=== PATIENT | female | born 1940 | race Caucasian/White ===

== ENCOUNTER 2017-12-13 11:25 | Outpatient (CLI) | payer MEDICARE ==
[2017-12-13 18:54] LABS: BILIRUBIN,URINE NEGATIVE (NEGATIVE); GLUCOSE, URINE (UA) NEGATIVE (NEGATIVE); KETONES,URINE (UA) NEGATIVE (NEGATIVE); LEUKOCYTE ESTERASE, URINE SMALL (NEGATIVE); NITRITE,URINE NEGATIVE (NEGATIVE); OCCULT BLOOD,URINE NEGATIVE (NEGATIVE); PROTEIN,URINE NEGATIVE (NEGATIVE); UROBILINOGEN,URINE 0.2 (NORMAL) E.U./dL (NORMAL)
[2017-12-13 19:22] LABS: BACTERIA,URINE Few /HPF (None Seen); CLARITY,URINE CLEAR (CLEAR); RBC,URINE None Seen /HPF (0-5); SQUAMOUS EPITHELIAL CELL,UR MANY Squamous (<= Few)
== END 2017-12-13 11:26 | disposition home or self-care (01) ==
LOC: LAB.WCP 11:25
PROVIDERS: ATTEND Family Medicine
DX: N76.0 Acute vaginitis (principal); R30.0 Dysuria
CPT/HCPCS: 81001; 87086

== ENCOUNTER 2017-12-29 09:41 | Outpatient (CLI) | payer MEDICARE, OTHER ==
--- NOTE | 2017-12-29 13:00 | Mammography Report ---
Reason: BREAST PAIN,LEFT Procedure Date: 12/29/2017 Accession Number: [id number] / [id number] Procedure: JEANNINE - Diagnostic Dig Bilat CPT Code: FULL RESULT: EXAM: Diagnostic Dig Bilat DATE: 12/29/2017 10:51 AM CLINICAL HISTORY: Nonfocal Breast pain TECHNIQUE: Bilateral CC and MLO breast views COMPARISON: Mammogram 01/22/2015 FINDINGS: The breast parenchyma is extremely dense which may limit the sensitivity of mammography. There are benign-appearing calcifications and lymph nodes. No dominant mass, architectural distortion, or concerning cluster of microcalcifications is seen. IMPRESSION: Benign findings RECOMMENDATION: Annual screening mammogram unless otherwise clinically indicated. BIRADS CATEGORY 2: Benign findings STANDARD QUALIFYING STATEMENTS: 1. This examination was reviewed with the aid of Computer-Aided Detection (CAD). 2. A negative or benign imaging report should not delay biopsy if clinically suspicious findings are present. Consider surgical consultation if warrented. More than 5% of cancers are not identified by imaging. 3. Dense breasts may obscure an underlying neoplasm.
== END 2017-12-29 09:42 | disposition home or self-care (01) ==
LOC: DI 09:41
PROVIDERS: ATTEND Family Medicine
DX: N64.4 Mastodynia (principal)
CPT/HCPCS: 77066

== ENCOUNTER 2018-11-12 08:00 | Outpatient (CLI) | payer MEDICARE, OTHER ==
[2018-11-12 22:47] LABS: CANDIDA GROUP DNA NEGATIVE (NEGATIVE); CANDIDA KRUSEI DNA NEGATIVE (NEGATIVE); TRICHOMONAS VAGINALIS DNA NEGATIVE (NEGATIVE)
== END 2018-11-12 23:59 ==
LOC: LAB.R 08:00
PROVIDERS: ATTEND Family Medicine
DX: N76.0 Acute vaginitis (principal)
CPT/HCPCS: 87661; 87801

== ENCOUNTER 2018-11-16 08:00 | Outpatient (CLI) | payer MEDICARE, OTHER ==
[2018-11-16 21:20] LABS: CANDIDA GROUP DNA NEGATIVE (NEGATIVE); CANDIDA KRUSEI DNA NEGATIVE (NEGATIVE); TRICHOMONAS VAGINALIS DNA NEGATIVE (NEGATIVE)
== END 2018-11-16 23:59 | disposition home or self-care (01) ==
LOC: LAB.R 08:00
PROVIDERS: ATTEND Obstetrics & Gynecology
DX: N89.8 Other specified noninflammatory disorders of vagina (principal)
CPT/HCPCS: 87661; 87801

== ENCOUNTER 2019-01-25 04:45 | Outpatient (CLI) | payer MEDICARE, OTHER ==
[2019-01-25 21:18] LABS: CANDIDA GROUP DNA NEGATIVE (NEGATIVE); CANDIDA KRUSEI DNA NEGATIVE (NEGATIVE); TRICHOMONAS VAGINALIS DNA NEGATIVE (NEGATIVE)
== END 2019-01-25 23:59 | disposition home or self-care (01) ==
LOC: LAB.R 04:45
PROVIDERS: ATTEND Physician Assistant
DX: N89.8 Other specified noninflammatory disorders of vagina (principal)
CPT/HCPCS: 87661; 87801

== ENCOUNTER 2019-10-25 11:00 | Outpatient (CLI) | payer MEDICARE, OTHER ==
--- NOTE | 2019-10-25 15:56 | CONSULTATION NOTE ---
Palliative Care Consultation - Referral Referring Provider: Dr. 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 She just underwent a bland embolization of her inferior right hepatic lobe/medial segment left hepatic lobe mass. She has had a previous embolization of her posterior segment of her right lobe liver mass. Patient has had her disease for over 5 years, she initially presented with carcinoid syndrome, a progressive chronic diarrhea and flushing episodes, in [place]. A CT scan demonstrated numerous hepatic masses as well as an ill-defined ileal mass. She did undergo biopsy of the liver mass on 04/29/2015 and was positive for metastatic well-differentiated neuroendocrine carcinoma, favoring intestinal origin. She has been on monthly lanreotide 120 mg subcutaneous injections since then, with fairly good control of her disease. She has though under the last couple months, has lost weight, worsening discomfort, and presented back on [facility] as she was planning to relocate permanently to [place]. They have been splitting their time up to this point in time as "snowbirds". Her was recently diagnosed with Parkinsons, as well as her worsening disease, as well as her daughter who is battling ovarian cancer has made this move more urgent. She though is feeling quite overwhelmed, and does not feel that this is possible to stay on task given particular her uncontrolled pain and unknown outcome. Patient's understanding is that if she were not to do further treatment, she has 7 months or less, she was offered by her oncologist Wesley, which is an infusion given every 2 months, For a series of 4 infusions, this is a radiopharmaceutical treatment. She would need to have this done down in [place] at [facility], or when she returns back to [place]. Patient presents with severe pain in her abdomen, she has tried hydrocodone 5 mg/acetaminophen 325 mg, intermittently, she took 1 full tablet, and felt somewhat confused, so has been taking a half. But she is only been taking it intermittently and without full coverage of her high intensity and persistent pain. She is has alternating diarrhea and constipation, anorexia, weight loss, and weakness. She at baseline has high anxiety, and is feeling quite overwhelmed both the grief and loss of her impending move, her daughter's illness, and her 's recent diagnosis. Her pain was exacerbated with her most recent embolization, she was hospitalized overnight for pain control, at that point time they had treated with Dilaudid and fentanyl. She is opioid nilson, may end up transitioning to fentanyl eventually, but need to get a better understanding and control of her pain with a short acting.Patient also presents with severe candidiasis, which is causing significant discomfort and impacting not only her voice and swallowing, but oral intake as well. Palliative care was contacted by patient's PCP Dr. Kwon, for urgent referral regarding pain and symptom management. Medical/Surgical History - Past Medical History Cardiovascular: reports: None Respiratory: reports: None Neuro: None Endocrine/Autoimmune: reports: None GI: reports: Other (diverticulosis) BRIM PLATER: reports: Other (vaginal dryness on premarin) HEENT: reports: Chronic vision loss, Other (allergic rhinitis) Psych: reports: Depression, Anxiety Musculoskeletal: reports: Osteoarthritis, Osteoporosis, Fatigue, Scoliosis, Other (kyphosis) Derm: reports: Rosacea MRSA Hx?: No - Past Surgical History General: reports: Other (bland embolization of liver 2019;2019) Ortho: reports: Hip replacement (right) - Substance History Use: Uses substance without health or social issues: NONE Social History - Living Situation Living arrangement: At home Living Situation: With spouse/s.o. Support System: Patient and alternate between [place] and [facility]. They had actually come up here to close down and sell their house, and permanently move south. Both her daughter, unfortunately has been battling ovarian cancer for 14 years is doing poorly, as well as her son are closer to their [place] home. Her is most recently been diagnosed with Parkinson's, so there is a concern about his health as well. They have very little social support and community up here. Family History - Family History Family History: Mother: (90 polycythemia), Alzheimer's Disease (age 94), Father: , Brother: Alive and Well (wagners syndrome) Family History Comment/Other: both children are adopted, but daughter has ovarian CA Medications/Allergies - Medications Home Medications: Ambulatory Orders Medication Instructions Recorded Confirmed Cyclosporine [Restasis] 1 drops EACHEYE BID 10/25/19 10/25/19 Estrogens, Conjugated [Premarin] 0.45 mg PO DAILY 10/25/19 10/25/19 Fluconazole [Diflucan] 100 mg PO .1X 10/25/19 10/25/19 Loperamide [Imodium] 2 mg PO QID PRN 10/25/19 10/25/19 Nystatin 5 ml PO QID MDD 10 days 10/25/19 10/25/19 Ondansetron [Ondansetron Odt] 4 mg PO Q6HR PRN 10/25/19 10/25/19 Senna [Senokot] 1 - 2 tab PO BID PRN 10/25/19 10/25/19 oxyCODONE [Roxicodone] 2.5 - 5 mg PO Q4HR 10/25/19 10/25/19 polyethylene glycoL 3350 [Miralax] 8.5 mg PO DAILY MDD bid 10/25/19 10/25/19 - Allergies Allergies/Adverse Reactions: Allergies Allergy/AdvReac Type Severity Reaction Status Date / Time erythromycin base Allergy Severe Unknown Verified 10/25/19 15:56 penicillin V Allergy Severe Unknown Verified 10/25/19 15:56 pneumococcal vaccine Allergy Severe Unknown Verified 10/25/19 15:56 [From Pneumovax-23] morphi AdvReac Unknown Unknown Uncoded 10/25/19 15:57 Review of Systems - Constitutional Constitutional: reports: Fatigue, Weakness, Poor appetite, Weight loss (normal weight thin at baseline 125-128; currently 116) - Eyes Eyes: reports: Vision loss (worsening) - Ears, Nose & Throat Ears, Nose & Throat: reports: Postnasal drainage, Hoarseness (voice weakening;complains of feeling something is down throat (suspect candidiasis)), Mouth lesions (candidiasis) - Cardiovascular Cardiovascular: reports: Lightheadedness, Exertional dyspnea, Decr. exercise tolerance - Respiratory Respiratory: denies: SOB at rest - Gastrointestinal Gastrointestinal: reports: Abdominal pain, Constipation, Diarrhea (alternating with constipation; mo), Poor appetite, Early satiety - Genitourinary Genitourinary: reports: Urgency, Incontinence - Musculoskeletal Musculoskeletal: reports: Back pain, Stiffness, Muscle weakness - Integumentary Integumentary: reports: Dryness - Neurological Neurological: reports: General weakness - Psychiatric Psychiatric: reports: Depression, Anxiety - All Other Systems All Other Systems: reports: Reviewed and negative Physical Exam - Vital Signs Temperature: 96.7 C Pulse Rate: 72 Respiratory Rate: 18 O2 Saturation: 99 (ra @ rest) Blood Pressure: 102/54 - Physical Exam General Appearance: positive: Alert, Moderate distress, Anxious Eyes Bilateral: positive: Normal inspection ENT: positive: Hoarseness (S), Mouth lesions (tongue / buccal area with yeast; was treated at [facility]; was on troches switched to nystatin Swish and swallow yesterday) Neck: positive: Trachea midline, Other (kyphosis with poor posture; ROM limited;) Cardiovascular: positive: Regular rate & rhythm Respiratory: positive: No respiratory distress, Diminished in bases. negative: Wheezes, Rales, Rhonchi Abdomen: positive: Soft, Tenderness Skin: positive: Pallor, Dryness Extremities: positive: No pedal edema Neurologic/Psychiatric: positive: Oriented x3, Weakness, Depressed mood/affect (tearful) Palliative Care - POLST Patient has POLST: No Pain: Pain worsening, Location (abdominal pain diffuse; worsening; has only tried hydrocodone 5 mg/325 mg APAP intermittently as is fearful; but not getting relief;) Tiredness/Fatigue: Severe (7-10) Drowsiness/Sedation: Mild (1-3) Nausea: None Anorexia: Severe (7-10), Weight loss Dyspnea: None Depression: Moderate (4-6) Anxiety: Severe (7-10), Comment (reports anxiety chcf;) Feelings of wellbeing/Perceived Quality of Life: Poor, Worsening Sleep: Sleeps poorly, Variable sleep pattern (up for urinating; pain awakens currently) Constipation: Yes, Opoid induced, Unmanaged Performance Status: Patient reports fatigue, decreasing activity tolerance. She is able to manage her ADLs, and is ambulatory. - Palliative Care Discussion: Patient is feeling overwhelmed and anxious with her pain crisis, she reports she has anxiety at baseline anyway. She is very much interested in meeting with the medical palliative care social insurance administrator and the hand reamer. She feels distressed as they had "plans" and making this transition as far as wrapping of their household here, getting her treatment, and moving back to [place]. She reports she is not afraid of dying, but does not want to suffer, and feels like her suffering quotient is off the map. She is worried given her 's health status, impacting his current schedule and trying to support his wellness. She does meet with the oncologist this next week, will hopefully know what her next plan or options is. She feels currently though if her pain does not come under control, she will not be able to make this appointment, reassured we will aggressively work on this together. 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 It is unclear if this is exacerbated by her recent embolization, but has been persistently worsening. She does not present with symptoms of obstruction, but is with severe anxiety and distress. Palliative care to provide support for pain and symptom management and anticipatory guidance. Recommendations/Counseling Done: 1. Pain of neoplastic origin. Patient with escalating pain, does not present with any acute signs or symptoms of infection, nor obstruction. Attributed to disease at this point in time, patient is opioid nilson. Patient to start with oxycodone 5 mg tabs, initiate half to 1 tab [id number] every 4 hours, this is written out with clear instructions and reviewed with patient and . Goal would be at point she is established on to find opioid dose to treat her pain, to transition her over to fentanyl. 2. Oral candidiasis. Suspect this is esophageal as well given her hoarseness and worsening swallow. We will go ahead and prescribe Diflucan 100 mg x 1, and she will as she is just switched continue with the nystatin 5 mils swish and swallow, continue to monitor. 3. Constipation. Suspect this is opioid induced. Patient is to start MiraLAX one half capful daily, and obtained senna 8.6 mg, to take intermittently if no BM in 48 hours. Patient does alternate with diarrhea and constipation secondary to her carcinoid syndrome. 4. Anorexia. This is multifactorial, patient encouraged on small frequent feedings, as well as to initiate protein supplements. She did try when the other day, tolerated without difficulty. Instructed to take 1 or 2 daily on a regular basis. Patient does describe anorexia. Patient cannot be on an SSRI, but may be a candidate for dexamethasone, will wait till candidiasis cleared, she did tolerated after her embolization. 5. Advanced care planning. Patient is quite overwhelmed, plans to return to [place]. Has very little community or support here, will initiate referral to medical palliative care social insurance administrator and hand reamer. Will revisit advanced care planning documents at next visit. Time Spent: 90 minutes with greater than 50% of this done in counseling regarding pain and symptom management, coordination of care with primary care and palliative care team.
== END 2019-10-25 11:01 | disposition home or self-care (01) ==
LOC: PC 11:00
PROVIDERS: ATTEND Nurse Practitioner Adult Health
DX: Z51.5 Encounter for palliative care (principal); G89.3 Neoplasm related pain (acute) (chronic); C78.7 Secondary malignant neoplasm of liver and intrahepatic bile duct; C80.1 Malignant (primary) neoplasm, unspecified; B37.0 Candidal stomatitis; F41.9 Anxiety disorder, unspecified; K52.9 Noninfective gastroenteritis and colitis, unspecified; K59.00 Constipation, unspecified; R63.0 Anorexia; H54.7 Unspecified visual loss; Z79.899 Other long term (current) drug therapy; Z79.891 Long term (current) use of opiate analgesic
CPT/HCPCS: 99345

== ENCOUNTER 2019-10-28 19:19 | Outpatient (CLI) | payer MEDICARE, OTHER ==
--- NOTE | 2019-10-28 20:25 | CONSULTATION NOTE ---
Palliative Care Follow Up - Referral Referring Provider: Dr. 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 She has had progressive and worsening pain over the last week, was asked to be seen by her PCP Dr. Taylor given her distress. She has had her disease for over 5 years, and has been managed with regular octreotide injections, lasting about 3 weeks, but receiving every 28 days. She does have a progressive chronic diarrhea, and flushing, which are moderately controlled by her current regimen. She has previously undergone an embolization, but not with the significant side effects she has now. I did start her on [id number] oxycodone one half to full tab 5 mg, for total of around 20 to 25 mg in 24 hours. This has been much more helpful, and she is not so distress. She has to wake up, though to take her pain meds, and would benefit from long-acting, she currently meets equal energy [facility] fentanyl 12 mcg patch, will proceed with this today. The other distressing symptom and it appears she is developed ascites, her abdomen is taut, she does have pressure under her ribs, it is firm to touch. She is also developed lower extremity edema, unfortunately she presents with blood pressure of 92/58, and a pulse of 60. She has gained about 4 to 5 pounds of fluid, she still remains quite cachectic. She continues to be challenged with getting calories, though is doing better, and is managing to get around 5 to 6 glasses of fluids a day. She reports her urine is lightening up. She still has significant fatigue, and is feeling pushed as far as her quality of life is worsening. Patient's voice remains quite weak and soft, her oral candidiasis is much improved. Her past medical history includes diverticulosis, chronic vision loss, allergic rhinitis, osteoarthritis, osteoporosis, scoliosis, kyphosis, and rosacea. Social History - Living Situation Living arrangement: At home Living Situation: With spouse/s.o. Support System: She lives with her him, [place] had [place] come up here to close and sell their house, and permanently move south. She does not see this is possible at this current time, given her physical condition. Her daughter is doing poorly, she has ovarian cancer and she is quite worried about her. She is hoping to move c loser to her [place] home, as her son would be closer as well. Her is most recently been diagnosed with Parkinson's so his health concerns remain problematic, she did share in confidence she is also worried some about his unwillingness to accept help, it is challenging with is hard of hearing, and she is concerned about memory. They have a single level home, do have resources to hire assistance if needed, but do not have any community support. Medications/Allergies - Medications Home Medications: Ambulatory Orders Medication Instructions Recorded Confirmed Cyclosporine [Restasis] 1 drops EACHEYE BID 10/25/19 10/28/19 Estrogens, Conjugated [Premarin] 0.45 mg PO DAILY 10/25/19 10/28/19 Loperamide [Imodium] 2 mg PO QID PRN 10/25/19 10/28/19 Nystatin 5 ml PO QID MDD 10 days 10/25/19 10/28/19 Ondansetron [Ondansetron Odt] 4 mg PO Q6HR PRN 10/25/19 10/28/19 Senna [Senokot] 1 - 2 tab PO BID PRN 10/25/19 10/28/19 oxyCODONE [Roxicodone] 2.5 - 5 mg PO Q4HR 10/25/19 10/28/19 polyethylene glycoL 3350 [Miralax] 8.5 mg PO DAILY PRN MDD bid 10/25/19 10/28/19 fentaNYL [Fentanyl 12mcg patch] 12 mcg TOP .72 HOURS 10/28/19 10/28/19 - Allergies Allergies/Adverse Reactions: Allergies Allergy/AdvReac Type Severity Reaction Status Date / Time erythromycin base Allergy Severe Unknown Verified 10/25/19 15:56 penicillin V Allergy Severe Unknown Verified 10/25/19 15:56 pneumococcal vaccine Allergy Severe Unknown Verified 10/25/19 15:56 [From Pneumovax-23] morphi AdvReac Unknown Unknown Uncoded 10/25/19 15:57 Review of Systems - Constitutional Constitutional: reports: Fatigue, Weakness, Poor appetite, Weight gain (fluid/remains cachetic 120 pounds on her scale). denies: Fever, Chills - Eyes Eyes: reports: Blurred vision, Vision loss - Ears, Nose & Throat Ears, Nose & Throat: reports: Hoarseness, Dry mouth. denies: Mouth lesions (improved) - Cardiovascular Cardiovascular: reports: Lightheadedness, Decr. exercise tolerance - Respiratory Respiratory: denies: Cough, SOB at rest - Gastrointestinal Gastrointestinal: reports: Abdominal pain, Abdominal distention (worsening), Constipation (small bm today), Bloating, Poor appetite, Early satiety. denies: Rectal bleeding, Nausea, Reflux/heartburn - Genitourinary Genitourinary: reports: Incontinence - Musculoskeletal Musculoskeletal: reports: Back pain, Muscle aches, Stiffness, Muscle weakness - Integumentary Integumentary: reports: Dryness - Neurological Neurological: reports: General weakness - Psychiatric Psychiatric: reports: Depression, Anxiety - All Other Systems All Other Systems: reports: Reviewed and negative Physical Exam - Vital Signs Temperature: 96.4 C Pulse Rate: 60 Respiratory Rate: 18 O2 Saturation: 95 (ra @ rest) Blood Pressure: 92/58 - Physical Exam General Appearance: positive: Alert, Moderate distress, Anxious Eyes Bilateral: positive: Normal inspection ENT: positive: Hoarseness, Dry mouth. negative: Mouth lesions Neck: positive: Trachea midline, Other (kyphosis with poor posture; ROM limited;) Cardiovascular: positive: Regular rate & rhythm Respiratory: positive: No respiratory distress, Diminished in bases. negative: Wheezes, Rales, Rhonchi Abdomen: positive: Soft, Tenderness, Distended, Taut Skin: positive: Pallor, Dryness Extremities: positive: Pedal edema (2+ pedal edema up to mid calf) Neurologic/Psychiatric: positive: Oriented x3, Weakness, Depressed mood/affect (tearful) Palliative Care - POLST Patient has POLST: Yes POLST Status: DNR, Selective Treatment Pain: Pain improved, Location (RUQ) Tiredness/Fatigue: Severe (7-10) Drowsiness/Sedation: None Nausea: None Anorexia: Severe (7-10), Weight loss Dyspnea: Moderate (4-6) (with exertion; feeling worse with abdominal pressure) Depression: Moderate (4-6) Anxiety: Severe (7-10) Feelings of wellbeing/Perceived Quality of Life: Poor, Worsening Sleep: Sleep improved, Variable sleep pattern (up at night to void) Constipation: Yes, Opoid induced, Managed Performance Status: Patient is ambulatory, still able to bathe. Less able to participate in household tasks, finding everything much more difficult. She does perceive herself is having declining functional status, I would put her at a PPS of 50% - Palliative Care Discussion: Patient is quite pleased her pain is better controlled, she feels that this is improved her outlook. She does though still perceive herself is deteriorating, she is not afraid of dying, but would like to know what her options are as far as if this is going to make sense to move forward. She is quite anxious for appointment with Oncology on . Significant concern though with her development of ascites and lower extremity edema, is her most often progressive signs of her liver mets. She is quite pragmatic, and would like information to be able to weigh benefits and burdens of moving forward, counseling provided regarding the continuum of care including hospice. Patient at this point in time until she has that information, is still congruent we reviewed her POLST that was completed on 10/17/2019 during her hospitalization. She is a do not attempt resuscitation and selective treatment. She does not want though to have prolong suffering, and is very worried about having appropriate support in the home. Medical palliative care social worker aide to make contact with patient, and family for anticipatory planning. Patient has given permission for the palliative care team to speak with her daughter and/or son. She is quite worried about her daughter as she is quite ill with her own ovarian cancer journey. 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 It is unclear if her recent pain crisis was exacerbated by her recent embolization, she did report she was having increasing pain but it acutely worsened after the procedure. She does not present currently with symptoms of obstruction, but does present today with worsening symptoms of ascites, and lower extremity edema. Palliative care to provide support for pain and symptom management and anticipatory guidance. Recommendations/Counseling Done: 1.Pain of neoplastic origin. Patient was able to figure out how to do through the night dosing, she has been taking oxycodone one half every 4 hours with 1 at nighttime, for a total of 20 to 25 mg in 24 hours. This does meet equal analgesic for fentanyl 12 mcg patch, I have ordered this. Instructions written out, reviewed, asked her to call into palliative care nurse when starts, so can do follow-up. Patient will then transition to further oxycodone for breakthrough dosing only. She is quite thankful to have relief at this point in time. 2. Oral candidiasis. She still has mild white coating her tongue, but no further vehicle lesions, and soreness and pain has resolved. She will continue to finish up her nystatin, but is making progress. 3. Constipation. She is about due for her octreotide, she has had some intermittent diarrhea, though presents today with constipation. We did discuss again titrating the MiraLAX as needed, if no good BM in 48 hours she is to start the senna. She does verbalize understanding. 4. Anorexia. This is multifactorial, patient continues to be challenged now particularly with her ascites to get adequate calories and fluid intake. Patient may be a candidate in the future for dexamethasone, after she is finished her nystatin. 5. Ascites. She does present with several white count, abdomen quite distended and taut, this is significantly increased since our last visit a few days ago. Did reach out to her oncologist, spoke with Urvashi SOLORZANO regarding report. She did get back to me he will evaluate on , in agreement given her hypotension, not to start diuretics at this point in time. Patient has been encouraged to keep feet elevated, and wear support hose if she has some. 6. Advanced care planning. Patient does have a POLST in place with DNA R and selective treatment. Iftikhar, her says they do have a DPOAE document, he will try and locate it but has their son as a second inline. They are struggling with her current situation, and how best to plan for the future. Did present to oncology patient's questions, regarding weigh benefits and burdens of proceeding with treatment, we discussed the continuum of care regarding hospice, and will be seen by medical palliative care social worker aide and ballast cleaning operator. Time Spent: 45 minutes with greater than 50% of this time in counseling regarding pain and symptom management, and coordination of care with primary, oncology, and palliative care team
== END 2019-10-28 19:20 | disposition home or self-care (01) ==
LOC: PC 19:19
PROVIDERS: ATTEND Nurse Practitioner Adult Health
DX: Z51.5 Encounter for palliative care (principal); G89.3 Neoplasm related pain (acute) (chronic); E34.0 Carcinoid syndrome; C7A.00 Malignant carcinoid tumor of unspecified site; C7B.02 Secondary carcinoid tumors of liver; R18.8 Other ascites; B37.0 Candidal stomatitis; R63.0 Anorexia; K52.9 Noninfective gastroenteritis and colitis, unspecified; K59.00 Constipation, unspecified; R53.83 Other fatigue; H54.7 Unspecified visual loss; Z79.891 Long term (current) use of opiate analgesic; Z79.899 Other long term (current) drug therapy; Z66 Do not resuscitate
CPT/HCPCS: 99349

== ENCOUNTER 2019-12-03 14:00 | Outpatient (CLI) | payer MEDICARE, OTHER ==
--- NOTE | 2019-12-03 17:12 | CONSULTATION NOTE ---
Palliative Care Follow Up - Referral Referring Provider: Dr. Jennifer Kwon Time of Visit: [id number] Referral setting: Home Referral Reason: Met Malignant carcinoid to the liver/Wt. 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 She does have known persistent masses in her liver, up to 6.3 cm at the base, she does have ongoing pressure and discomfort in this area. Her imaging on 11/12 does show persistent gallbladder distention with gallbladder wall thickening and potentially indicating chronic cholecystitis, most likely biliary stasis. She had told the oncologist her pain was resolved, but this was as a result of fentanyl patch. She would though like to continue continue and consider titrating off, we have written out schedule for today. Her pain is most acute in the right upper quadrant, notices it most at bedtime, particularly with turning and twisting. It also provides a lot of abdominal pressure and distention, causing early satiety and poor intake and progressive weight loss. Patient did have biopsy, that showed progressive metastatic well differentiated GI neck to the liver,, grade 2 with high 65 5 to 10%. She was given the recommendation to follow-up at [facility], for GA67 Dotatate PET/CT. She is quite anxious that she has not heard from them, and she is starting to have escalating symptoms of flushing, severe diarrhea, and worsening fatigue. She is having this test is her understanding and to further evaluate whether she be a candidate for [place] RT with Lutathera. He also presented some chemotherapeutic options, which she has high anxiety regarding this. Her daughter is currently undergoing chemotherapy, and having significant side effects and declined. She is quite frustrated with oncology as feels like she is not getting prognosis, though does admit most likely is too soon to tell without all the information needed together. Her most persistent symptoms today are she is having persistent diarrhea, she has not been taking Imodium or Lomotil, and has had more weight loss. She is unable to tell me why she has not medicated for side effects, but we did go over strategy today. She remains quite anxious, multiple stressors, has been working with medical palliative care public health social worker for short-term and long-term planning as well as counseling for adjustment illness. Social History - Living Situation Living arrangement: At home Living Situation: With spouse/s.o. Support System: Patient's usual pattern is alternating between [facility] and [place], she at this point in time feels too overwhelmed to move forward on transitioning back down though they do have a more social support. They are quite isolated, her has Parkinson's with some memory issues, which increases communication and stress issues between the 2 of them. Medications/Allergies - Medications Home Medications: Ambulatory Orders Medication Instructions Recorded Confirmed Cyclosporine [Restasis] 1 drops EACHEYE BID 10/25/19 12/05/19 Estrogens, Conjugated [Premarin] 0.45 mg PO DAILY 10/25/19 12/05/19 Loperamide [Imodium] 2 mg PO QID PRN 10/25/19 12/05/19 Ondansetron [Ondansetron Odt] 4 mg PO Q6HR PRN 10/25/19 12/05/19 Senna [Senokot] 1 - 2 tab PO BID PRN 10/25/19 12/05/19 oxyCODONE [Roxicodone] 2.5 - 5 mg PO Q4HR 10/25/19 12/05/19 polyethylene glycoL 3350 [Miralax] 8.5 mg PO DAILY PRN MDD bid 10/25/19 12/05/19 Diphenoxylate/Atropine [Lomotil] 1 tab PO Q4HR PRN MDD 8 tabs 12/05/19 12/05/19 - Allergies Allergies/Adverse Reactions: Allergies Allergy/AdvReac Type Severity Reaction Status Date / Time erythromycin base Allergy Severe Unknown Verified 10/25/19 15:56 penicillin V Allergy Severe Unknown Verified 10/25/19 15:56 pneumococcal vaccine Allergy Severe Unknown Verified 10/25/19 15:56 [From Pneumovax-23] morphi AdvReac Unknown Unknown Uncoded 10/25/19 15:57 Review of Systems - Constitutional Constitutional: reports: Fatigue (worsening), Weakness, Poor appetite, Weight loss (118). denies: Fever, Chills - Ears, Nose & Throat Ears, Nose & Throat: reports: Hoarseness (voice changing/weak), Dry mouth - Cardiovascular Cardiovascular: reports: Edema (improved), Lightheadedness, Exertional dyspnea, Decr. exercise tolerance - Respiratory Respiratory: reports: SOB with exertion. denies: SOB at rest - Gastrointestinal Gastrointestinal: reports: Diarrhea (worsening off landreotide; up to 5-6 x times yesterday; had NOT taken any antidiarrheal), Poor appetite, Early satiety. denies: Nausea - Genitourinary Genitourinary: reports: Frequency - Musculoskeletal Musculoskeletal: reports: Back pain, Stiffness, Muscle weakness - Integumentary Integumentary: reports: Dryness - Neurological Neurological: reports: General weakness - Psychiatric Psychiatric: reports: Depression, Anxiety (has not heard about scheduled [facility] appt; not getting "shot"; daughter's health is declining) - Hematologic/Lymphatic Hematologic/Lymphatic: denies: Recurrent infections - All Other Systems All Other Systems: reports: Reviewed and negative Physical Exam - Vital Signs Temperature: 97.1 C Pulse Rate: 76 Respiratory Rate: 16 O2 Saturation: 95 (ra @ rest) Blood Pressure: 122/72 - Physical Exam General Appearance: positive: Alert, Mild distress, Anxious Eyes Bilateral: positive: Normal inspection, No scleral icterus ENT: positive: No signs of dehydration. negative: Pharyngeal erythema, Oral lesions, Dry mucous membranes Neck: positive: Trachea midline, Other (kyphosis with poor posture; ROM limited;) Cardiovascular: positive: Regular rate & rhythm Respiratory: positive: No respiratory distress, Diminished in bases (left greater than right). negative: Wheezes, Rales, Rhonchi Abdomen: positive: Soft, Nml bowel sounds, Tenderness, Distended (improved) Skin: positive: Pallor, Dryness Extremities: positive: Pedal edema (1+ mostly in feet; improved but still difficult to wear shoes) Neurologic/Psychiatric: positive: Oriented x3, Weakness, Depressed mood/affect (tearful/frustrated), Other (anxious) Palliative Care - POLST Patient has POLST: Yes POLST Status: DNR, Selective Treatment Pain: Pain improved (has not needed extra oxycodone;), Location (right liver area; radiates around to back; worse at night and with getting in and out of bed; bed mobility) Tiredness/Fatigue: Moderate (4-6) Drowsiness/Sedation: Mild (1-3) Nausea: None Anorexia: Moderate (4-6) Dyspnea: Mild (1-3) Depression: Moderate (4-6) Anxiety: Moderate (4-6) Feelings of wellbeing/Perceived Quality of Life: Fair, Acceptable, Worsening Sleep: Variable sleep pattern Constipation: No Performance Status: Patient continues to be limited in her activity related to her pain and activity intolerance. She has been encouraged to gradually increase her activity, including short walks and outings to help both her physical and emotional he alth. She is able to manage her ADLs independently. - Palliative Care Discussion: Patient continues to be quite impatient with the process, did call from the home to help expedite referral down to [facility] to nurse at oncology, she was able to move "it along" and will track it. Regarding this is that she does get quite uncomfortable with her carcinoid syndrome symptoms. She is quite worried about her daughter, who is not doing well, and feels overwhelmed most likely she will before patient does. Patient continues to complain of persistent depressive and anxiety symptoms, does create many barriers around suggestions from both SOLAR SALES CONSULTANT and REFRIGERATOR REPAIRMAN. Patient is hoping for information regarding prognosis, to help with long-term planning and decision-making. She does understand this is an extended trajectory, not like her daughter's ovarian cancer, and many more unknowns. Encouraged to be patient with herself in the process. 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 She is experiencing increased symptoms with a delay of her lanreotide. She continues to have high symptom burden of right upper quadrant pain, diarrhea, anxiety,depressive symptoms, anorexia, weight loss and functional decline. Palliative care team working with patient and family to maximize quality of life and symptom management, providing support and anticipatory guidance. Recommendations/Counseling Done: 1. Pain of neoplastic origin. This is multifactorial, does appear residual from embolization is most likely resolved, patient though does continue with tumor mass-effect and pressure in her right upper quadrant. She is most uncomfortable at nighttime lying down, with pressure of the tumor in bed mobility. We did discuss we can titrate down off the fentanyl for lower opioid load, titration schedule given for slow taper, discussed at any point in time could plateau if pain was worsening. Patient does have tenderness, and mass-effect and right upper quadrant. She has no outward negative effects of fentanyl, no sedation, no nausea, no constipation, and has tolerated well. 2. Lower extremity edema. This is improved, she is taking in less though. She still has trace to 1+ edema left greater than right. She was not able to find stockings she could tolerate. Has been encouraged to be more active and keep feet elevated, she does sit with them dependent quite a bit. 3. Diarrhea. This is secondary to her carcinoid syndrome, patient has not been taking her antidiarrheals. Patient's been instructed to restart her Lomotil 1 tab after each loose stool, if needing more to 4-6 tabs in a day, she is to schedule I tab 3-4 times a day. Goal is to keep diarrhea to less than 2 stools a day, she is trending down to low potassium. Counseling provided regarding need to treat diarrhea secondary to hypokalemia, loss of fluids, and continued weight loss. Depression. This is both situational, and patient has underlying generalized anxiety disorder. She has been given cognitive behavioral techniques, both from [facility] and REFRIGERATOR REPAIRMAN. Patient is grieving her daughter's illness, as well as isolation appear on [facility]. We will continue to work with palliative care team. 4. Anorexia. This is multifactorial, patient has early satiety secondary to tumor burden, taste changes, they have only gone out once. She does get overwhelmed trying to figure out "what to eat", encouraged to follow-up on eating out or getting takeout. 5. Advanced care planning. Patient has completed her POLST with DNA R and selective treatments. She continues to try and get more definitive information regarding her prognosis, counseling provided regarding complexity of carcinoid tumor and prognostication, will be collecting information that may better be able to chart her course. Patient continues to waffle back and forth whether she would accept treatment, depending on the investment of time and side effects. At this point in time has been encouraged to "stay the course", she still has a treatable disease, agreed palliative care will continue to follow for support. Time Spent: 45 minutes with greater than 50 of this done in counseling regarding pain and symptom management, pain/opioid taper as well as management of diarrhea and anticipatory guidance. Coordination with oncology team
== END 2019-12-03 14:01 | disposition home or self-care (01) ==
LOC: PC 14:00
PROVIDERS: ATTEND Nurse Practitioner Adult Health
DX: Z51.5 Encounter for palliative care (principal); E34.0 Carcinoid syndrome; G89.3 Neoplasm related pain (acute) (chronic); R60.0 Localized edema; R63.4 Abnormal weight loss; R63.0 Anorexia; R68.81 Early satiety; F41.1 Generalized anxiety disorder; F43.21 Adjustment disorder with depressed mood; C7A.00 Malignant carcinoid tumor of unspecified site; C7B.02 Secondary carcinoid tumors of liver; Z79.899 Other long term (current) drug therapy; Z79.891 Long term (current) use of opiate analgesic; Z63.79 Other stressful life events affecting family and household; Z66 Do not resuscitate
CPT/HCPCS: 99349

== ENCOUNTER 2019-12-18 10:00 | Outpatient (CLI) | payer MEDICARE, OTHER ==
--- NOTE | 2019-12-18 16:50 | CONSULTATION NOTE ---
Palliative Care Follow Up - Referral Referring Provider: Dr. 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 This shows progressive tumor well differentiated GI not to liver, whole-body lymph nodes, bones, status post recent bland embolization to liver x2 sessions. Of note and interest is her focal bone intake, particularly to the right iliac wing, posterior ninth rib, multiple other ribs. When looking at her pain and worsening pain, it is mostly located in the right side right hip area with pressure, significantly worse at bedtime, and difficulty with getting comfortable related to the pain with turning or moving in bed. She also has increased pain on her left side, with any kind of pressure. She has continued to have weight loss, with early satiety, denies nausea, but does present with with muscle wasting and cachexia. Patient has been titrated off her fentanyl, she still continues with severe uncontrolled pain at bedtime, says she is unable to sleep, and she awakens in pain. We did discuss possibility of a hospital bed for positioning and bed mobility, or returning back to the fentanyl as she felt better on it. We will trial just the oxycodone at bedtime 1 tab at bedtime, and a second 1 if she wakes up, as it does seem to be related to pressure and discomfort of sleeping in the bed. She has intermittent right-sided pain to the day, but not persistent. She is awaiting her appointment next Monday to evaluate Lutathera, she is hoping to [facility], that she will be a candidate. She is having progressive flushing and intermittent chills. She does feel like her quality of life is continued to deteriorate, she is somewhat anxious about weighing benefits and burdens of moving on with treatment. We did discuss in the context of this though she most likely would benefit, both for improving her pain management, quality of life, and will need to get the numbers for prognostically. Patient does not want to go through any unnecessary treatment with no good outcomes. She is basing somewhat of her experience on her daughters journey with ovarian cancer, and she is gone to the extreme, she is not wanting to pursue it this way, we did discuss though her cancer and his behavior is definitely a different journey. Patient continues to be quite anxious, they have minimal support up here, they continue to struggle with whether to return to [place] and be closer to her son. She is worried about any bad outcomes, and him having the support he needs. She continues to have intermittent diarrhea, is hoping this will have improved now that she has had her Landreotide shot. Social History - Living Situation Living arrangement: At home Living Situation: With spouse/s.o. Support System: Patient lives with her him, Iftikhar does have Parkinson's. So far they have been managing okay, they had come up to sell their house and return back to [place] as her primary residence. They are feeling that it would be too difficult at this point in time to make that transition, though they continue to struggle with this. Patient's biggest worry is something would come up that they would need further support with, and her son is down in [place]. Medications/Allergies - Medications Home Medications: Ambulatory Orders Medication Instructions Recorded Confirmed Cyclosporine [Restasis] 1 drops EACHEYE BID 10/25/19 12/18/19 Loperamide [Imodium] 2 mg PO QID PRN 10/25/19 12/18/19 Ondansetron [Ondansetron Odt] 4 mg PO Q6HR PRN 10/25/19 12/18/19 Senna [Senokot] 1 - 2 tab PO BID PRN 10/25/19 12/18/19 oxyCODONE [Roxicodone] 2.5 - 5 mg PO Q4HR 10/25/19 12/18/19 polyethylene glycoL 3350 [Miralax] 8.5 mg PO DAILY PRN MDD bid 10/25/19 12/18/19 Diphenoxylate/Atropine [Lomotil] 1 tab PO Q4HR PRN MDD 8 tabs 12/05/19 12/18/19 - Allergies Allergies/Adverse Reactions: Allergies Allergy/AdvReac Type Severity Reaction Status Date / Time erythromycin base Allergy Severe Unknown Verified 10/25/19 15:56 penicillin V Allergy Severe Unknown Verified 10/25/19 15:56 pneumococcal vaccine Allergy Severe Unknown Verified 10/25/19 15:56 [From Pneumovax-23] morphi AdvReac Unknown Unknown Uncoded 10/25/19 15:57 Review of Systems - Constitutional Constitutional: reports: Fatigue, Chills (with flushes), Weakness, Poor appetite, Night sweats, Weight loss (116). denies: Fever - Eyes Eyes: reports: Vision loss, Corrective lenses - Cardiovascular Cardiovascular: reports: Decr. exercise tolerance. denies: Edema (resolved) - Respiratory Respiratory: denies: SOB at rest - Gastrointestinal Gastrointestinal: reports: Abdominal pain, Constipation, Diarrhea (alternating with constipation/diarrhea-was 2 weeks past due shot of landreotide with worsening diarrhea/ constipation yesterday), Bloating, Poor appetite, Early satiety. denies: Nausea, Reflux/heartburn - Genitourinary Genitourinary: reports: Incontinence (mild) - Musculoskeletal Musculoskeletal: reports: Back pain, Muscle weakness - Integumentary Integumentary: reports: Dryness - Neurological Neurological: reports: General weakness - Psychiatric Psychiatric: reports: Depression, Anxiety - Hematologic/Lymphatic Hematologic/Lymphatic: denies: Recurrent infections - All Other Systems All Other Systems: reports: Reviewed and negative Physical Exam - Vital Signs Temperature: 96.9 C Pulse Rate: 66 Respiratory Rate: 18 O2 Saturation: 95 (ra @ rest) Blood Pressure: 110/62 - Physical Exam General Appearance: positive: Alert, Mild distress, Anxious Eyes Bilateral: positive: Normal inspection, No scleral icterus ENT: positive: No signs of dehydration. negative: Pharyngeal erythema, Oral lesions, Dry mucous membranes Neck: positive: Trachea midline, Other (kyphosis with poor posture; ROM limited;) Cardiovascular: positive: Regular rate & rhythm Respiratory: positive: No respiratory distress, Diminished in bases (left greater than right). negative: Wheezes, Rales, Rhonchi Abdomen: positive: Soft, Nml bowel sounds, Tenderness Skin: positive: Pallor, Dryness Extremities: positive: No pedal edema Neurologic/Psychiatric: positive: Oriented x3, Weakness, Depressed mood/affect (tearful/frustrated), Other (anxious) Palliative Care - POLST Patient has POLST: Yes POLST Status: DNR, Selective Treatment Pain: Pain unchanged, Location (right upper quadrant; right hip area; left side with pressure of laying in bed; night time severe pain episodes) Tiredness/Fatigue: Moderate (4-6) Drowsiness/Sedation: None Nausea: None Anorexia: Severe (7-10), Weight loss (116 taking only protien drink every other day) Dyspnea: Mild (1-3) Depression: Moderate (4-6) Anxiety: Severe (7-10) Feelings of wellbeing/Perceived Quality of Life: Fair, Worsening Sleep: Sleeps poorly Constipation: Yes, Opoid induced, Intermittent constipation Performance Status: Patient ambulatory in her own home, does find himself quite sedentary. She is able to do her own ADLs. She has been encouraged to increase her activities and progress her ambulation for endurance. She continues to be quite discouraged. - Palliative Care Discussion: Discussion regarding patient's anxieties of upcoming appointment [facility], did review information available on Lutathera. Encouraged her to write down her questions for the provider, she is starting to feel more positive about moving forward with this. We did discuss the goal would be to be managing her disease, it would not be curative in intent. She is very interested in prognostic information, to be able to help her make her decision. We did discuss though treatment would also improve her pain, quality of life, as well as trade off for quantity. Patient does not want to incur any further disability or decline, this would not be quality of life for her, with her progressive weight loss, and muscle wasting, she is finding herself quite weak and concerned about further overall decline. 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 Continues with persistent pain, particularly at night, loss and muscle wasting, remains quite anxious regarding pending treatment plan, and concern for social support. Palliative care providing support for pain and symptom management, and anticipatory guidance. Recommendations/Counseling Done: 1. Pain of neoplastic origin. This is multifactorial, originally thought to be residual from embolization, now most likely related to her progressive disease, particularly osseous mets, and the right iliac wing is suspicious for increased pressure and pain discomfort at night. She was able to taper off the fentanyl, though continues to report felt better, but pain at night is keeping her from sleeping. We did discuss weighing benefits of burdens of going back on the fentanyl versus trialing oxycodone at night only. At this point time she will take 1 oxycodone at bedtime, and repeat in the middle of the night. She will get a memory foam so she is more comfortable in her bed, if this is not helpful enough, I did give him information for obtaining a hospital bed, which would allow her for better positioning and bed mobility particular with half rails. Turning and getting up and down in bed is what exacerbates her pain. 2. Lower extremity edema. This appears to be resolved, is continuing t aleisha to lotion and massage her feet intermittently. 3. Anorexia. This remains multifactorial, patient does describe early satiety, anorexia, taste changes. Imaging continues to show persistent gallbladder distention with gallbladder wall thickening, indicating chronic cholecystitis most likely biliary stasis this could be adding to her discomfort as well. Counseling reinforced and reviewed need to increase calories, for patient to continue with treatment and moving forward, needs to have no further weight loss. Patient is instructed to increase her protein drinks to at least daily up to 3 times a day if tolerated. She does not like to cook, and gets overwhelmed, and again reinforced getting takeout, and ways to better manage meal prep. 3. Diarrhea. This alternates with constipation. She was able to manage her diarrhea with no more than 1 Lomotil a day. She is now struggling with constipation today. Unfortunately constipation adds to her pain and distress. 4. Depression. This is both situational and patient has underlying generalized anxiety disorder. She has been given cognitive behavioral techniques both from [facility] She continues to grieve her daughter's illness, who continues to be struggling with her journey with ovarian cancer. We will continue to work with the palliative care team. 5. Metastatic malignant carcinoid tumor to the liver. Counseling provided and addressed patient's questions as best able given information available. Encouraged to write down questions for their upcoming [facility] consult. Time Spent: 45 minutes with greater than 50% of this done in counseling, continue provide support for patient regarding pain and symptom management, anticipatory guidance, and coordination of care with oncology.
== END 2019-12-18 10:01 | disposition home or self-care (01) ==
LOC: PC 10:00
PROVIDERS: ATTEND Nurse Practitioner Adult Health
DX: Z51.5 Encounter for palliative care (principal); G89.3 Neoplasm related pain (acute) (chronic); E34.0 Carcinoid syndrome; R60.0 Localized edema; R63.0 Anorexia; R68.81 Early satiety; R63.4 Abnormal weight loss; R43.9 Unspecified disturbances of smell and taste; R53.83 Other fatigue; F41.1 Generalized anxiety disorder; F43.21 Adjustment disorder with depressed mood; K59.03 Drug induced constipation; T40.2X5A Adverse effect of other opioids, initial encounter; C7A.00 Malignant carcinoid tumor of unspecified site; C7B.03 Secondary carcinoid tumors of bone; C7B.01 Secondary carcinoid tumors of distant lymph nodes; C7B.02 Secondary carcinoid tumors of liver; Z79.899 Other long term (current) drug therapy; Z79.891 Long term (current) use of opiate analgesic; Z60.8 Other problems related to social environment; Z66 Do not resuscitate
CPT/HCPCS: 99349

== ENCOUNTER 2020-01-30 10:00 | Outpatient (CLI) | payer MEDICARE, OTHER ==
--- NOTE | 2020-01-30 12:19 | CONSULTATION NOTE ---
Palliative Care Follow Up - Referral Referring Provider: Dr. Kendal Kwon Time of Visit: 01-25 Referral setting: Home Referral Reason: Pain of neoplastic origin/Anxiety/Met Carcinoid Liver/Insomnia - Information Sources Records reviewed: Previous records reviewed History/Review of Systems obtained from: Patient, Family ( Iftikhar) Exam limitations: No limitations - History of Present Illness Update Brief HPI Update: This is a 79-year-old woman with metastatic carcinoid/GI neuroendocrine tumor involving liver, lymph nodes, bone, and currently on hold for her lanreotide treatment. She is to start her new medication at [facility] on 1110, she is working on getting this organized visit will take some time overnight for follow-up. She reports she has done fairly well, with decreased diarrhea despite not receiving her lanreotide treatment this month, it is been over 6 weeks, has been able to control with Lomotil, last time had to take was Monday unfortunately this morning 2. She did have an episode of severe cramping, burning sensation, and diarrhea. It is starting to settle down, her abdomen is tender right upper quadrant, she does report though her stool was quite light towards the end of her multiple episodes. Patient has been eating better, we do not have a current weight the last one on 01/12 was 116 and is holding steady. They have been out to eat, she has been pushing fluids and her protein drinks, but is having a bad day today. She is also quite stressed, her daughter continues to do poorly with her journey with cancer, as well as her was in the ED with cardiac issues over the weekend. Patient's other main complaint is difficulty sleeping, she had trialed some melatonin a few days intermittently without seen much different. She has been prescribed temazepam by her oncologist, she remains quite hesitant to take any medications, gets quite anxious regarding this. She does feel overwhelmed overall, regarding her daughter, her , lack of support up here, and her worsening cancer diagnosis herself. She is willing at this point in time for me to follow-up on referrals to the bigger team. Past Medical History: Original diagnosis of metastatic malignant carcinoid tumor to liver was in 03/2015, has had 2 embolizations, last , as well as a liver biopsy on 11/26/2019. She has had a bowel resection, right hip replacement, hysterectomy, carcinoid syndrome, and underlying anxiety and depression. Social History - Living Situation Living arrangement: At home Living Situation: With spouse/s.o. Support System: Patient had alternated living in [place], and would [place]. They have decided to stay up here as they have started their treatment regimen, though they have very little community support. Her to him, though quite attentive, is struggling with his journey with Parkinson's, and recent ED visit for cardiac issues. They have been to 52 years, just celebrated their anniversary. She does worry significantly about her daughter, who is very sick with ovarian cancer, bedbound, and their family situation. She is in contact with her constantly, which helps but also exacerbates her distress. Medications/Allergies - Medications Home Medications: Ambulatory Orders Medication Instructions Recorded Confirmed Cyclosporine [Restasis] 1 drops EACHEYE BID 10/25/19 01/02/20 Loperamide [Imodium] 2 mg PO QID PRN 10/25/19 01/02/20 Ondansetron [Ondansetron Odt] 4 mg PO Q6HR PRN 10/25/19 01/02/20 Senna [Senokot] 1 - 2 tab PO BID PRN 10/25/19 01/02/20 oxyCODONE [Roxicodone] 2.5 - 5 mg PO Q4HR 10/25/19 01/02/20 polyethylene glycoL 3350 [Miralax] 8.5 mg PO DAILY PRN MDD bid 10/25/19 01/02/20 Diphenoxylate/Atropine [Lomotil] 1 tab PO Q4HR PRN MDD 8 tabs 12/05/19 01/02/20 Alprazolam [Xanax] 0.25 mg PO TID PRN 01/02/20 01/02/20 Melatonin 3 - 5 mg PO QPM PRN 01/04/20 01/04/20 - Allergies Allergies/Adverse Reactions: Allergies Allergy/AdvReac Type Severity Reaction Status Date / Time erythromycin base Allergy Severe Unknown Verified 10/25/19 15:56 penicillin V Allergy Severe Unknown Verified 10/25/19 15:56 pneumococcal vaccine Allergy Severe Unknown Verified 10/25/19 15:56 [From Pneumovax-23] morphi AdvReac Unknown Unknown Uncoded 10/25/19 15:57 Review of Systems - Constitutional Constitutional: reports: Fatigue, Chills (more frequent alternating between hot/cold), Weight loss (feels currently stable at 116; though appears thin and cachetic). denies: Fever - Eyes Eyes: reports: Vision loss, Corrective lenses - Ears, Nose & Throat Ears, Nose & Throat: reports: Hoarseness (voice remains weak and raspy) - Cardiovascular Cardiovascular: reports: Decr. exercise tolerance. denies: Edema (resovled) - Respiratory Respiratory: denies: Cough, SOB at rest - Gastrointestinal Gastrointestinal: reports: Diarrhea (taking lomotil about 2-3x a week; last episode this am), Bloating, Poor appetite, Early satiety. denies: Nausea - Genitourinary Genitourinary: denies: Incontinence - Musculoskeletal Musculoskeletal: reports: Back pain (kyphotic), Stiffness, Muscle weakness, Joint pain (right hip pain with weight bearing) - Integumentary Integumentary: reports: Dryness - Neurological Neurological: reports: General weakness. denies: Headache - Psychiatric Psychiatric: reports: Depression (tearful through visit), Anxiety - Endocrine Endocrine: reports: Intolerance to cold, Intolerance to heat (alternating) - Hematologic/Lymphatic Hematologic/Lymphatic: denies: Recurrent infections - All Other Systems All Other Systems: reports: Reviewed and negative Physical Exam - Vital Signs Temperature: 96.3 C Pulse Rate: 68 Respiratory Rate: 16 O2 Saturation: 95 (ra @ rest) Blood Pressure: 122/72 - Physical Exam General Appearance: positive: Alert, Mild distress, Anxious, Cachetic Eyes Bilateral: positive: Normal inspection, No scleral icterus ENT: positive: No signs of dehydration. negative: Pharyngeal erythema, Oral lesions, Dry mucous membranes Neck: positive: Trachea midline, Other (kyphosis with poor posture; ROM limited;) Cardiovascular: positive: Regular rate & rhythm Respiratory: positive: No respiratory distress, Diminished in bases (left greater than right). negative: Wheezes, Rales, Rhonchi Abdomen: positive: Soft, Nml bowel sounds, Tenderness, Hepatomegaly Skin: positive: Pallor, Dryness Extremities: positive: No pedal edema, Other (feet and hands cool to touch) Neurologic/Psychiatric: positive: Oriented x3, Weakness, Depressed mood/affect (tearful/frustrated), Other (anxious) Palliative Care - POLST Patient has POLST: Yes POLST Status: DNR, Selective Treatment Pain: Pain worsening, Location (right upper quadrant; worse today; has been only at bedtime with movement/turning;), Severity (mod burning pain; improved by end of visit) Tiredness/Fatigue: Severe (7-10) Drowsiness/Sedation: None Nausea: Mild (1-3) ("gnawing" sensation) Anorexia: Moderate (4-6) Dyspnea: None Depression: Mild (1-3) Anxiety: Severe (7-10) Feelings of wellbeing/Perceived Quality of Life: Poor, Worsening Sleep: Variable sleep pattern Performance Status: Patient is ambulatory, is able to manage her own ADLs, she is able to drive. She does report decreased activity tolerance, and is often worried about diarrhea and going out. This can be overwhelming and limiting as far as her willingness to engage in outside activities. - Palliative Care Discussion: Patient reports is been a very bad week, her was in the ED, she was quite scared and fearful regarding this. She does wonder when he she is gone hello he is going to do, he does not seem to distressed by this. She is quite worried about her daughter and her family, does appear she is not doing well, is mostly bedbound, not tolerating treatment. There are significant stressors related to this family and patient's worry about outcomes regarding this. Patient feels like she does not have very much support, but she has been playing cards with some friends appropriately social distance, she has actually been gone out to eat a few times, but often turns to him down for suggestions of time away from the home. She reports she is only "living her cancer". She feels her life is taken up by this, and finds it difficulty to look beyond this.She finds it difficult being in the waiting time, just wants to get on with it, treatment is still about 4 weeks away, and gets quite frustrated by the system. Though she is getting things lined up which makes her feel a little bit better she does admit to needing to have control and recognize that she is in a situation where this is not possible. 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 She does present with persistent fluctuating pain, is having it "bad day-to-day", continues with chills and hot flashes alternating, intermittent and fluctuating diarrhea, anorexia, and severe anxiety and grief. Palliative care team providing support for pain and symptom management and anticipatory guidance. Recommendations/Counseling Done: 1. Pain of neoplastic origin. Reviewed with patient can use oxycodone 1/2-1 tab intermittently for escalating pain. This is in her "toolbox". She has found the memory foam mattress helpful for managing evening pain and discomfort. Patient also has pain and spasms associated with intermittent diarrhea. Patient remains quite reserved as far as taking any medications, but is aware has options. 2. Insomnia. Patient wanted to try melatonin, has only tried 2 or 3 times spo radically, reviewed the intervention for melatonin is a nightly dose, as it does impact circadian rhythm, and does not provide "quick fix". We need to trial for 7 to 10 days in a row to see if effective. When explored further, patient often is not able to sleep because of racing mind, gets quite anxious regarding all her stressors, we did discuss she could use her alprazolam at bedtime, this is short acting and she is worried about "getting drugged up" and may help her settle to sleep. She will trial and see if this does the trick, she is chosen not to take the temazepam as well that was prescribed by oncology. 3. Anxiety. This is multifactorial, and also intertwined with grief, and existential distress. Will follow up on referral to claim adjuster, she still would like to see her. Did encourage her to reach out for transition social worker as well, discussed what expectations were and processing grief and loss as well as emotions, are not "a fix", but can be helpful as far as managing overall. She has been thinking about calling her, she does have her in her phone. Counseling provided also to schedule or set time aside for outside of her cancer diagnosis, patient does express desire to go to the ocean, out to eat, and thrift store shopping. Encouraged to schedule this in, has been gets somewhat frustrated with her, because offers and she often declines. 4. Metastatic carcinoid's syndrome to liver, patient is going forward with treatment, remains quite anxious regarding this. Counseling provided regarding obstructive symptoms regarding jaundice, change in color of urine/poop, and when to contact oncology/palliative care for concerns. Patient without signs or symptoms of jaundice today, but has had intermittent light stools. 5. Advanced care planning. Patient continues to struggle with the seriousness of her illness, does understand treatment is palliative in nature, does worry about fallout for her and family. Patient does have POLST in place, with DNA R/selective treatments. We will continue to follow along gait weighing benefits and burdens of treatment options and follow-up as arise. 6. Weight loss. Patient does report doing better, encouraged in follow-up to continue to eat out, she really likes "[place] food", and finds this stimulating to her appetite. Reminded her goal was just no further weight loss, it does appear she is doing better. Time Spent: 60 minutes with greater than 50% of this done in counseling regarding pain and symptom management, anticipatory guidance, counseling for anxiety and depression, will schedule to see her after her [facility] treatment.
== END 2020-01-30 10:01 | disposition home or self-care (01) ==
LOC: PC 10:00
PROVIDERS: ATTEND Nurse Practitioner Adult Health
DX: Z51.5 Encounter for palliative care (principal); G89.3 Neoplasm related pain (acute) (chronic); F41.9 Anxiety disorder, unspecified; G47.00 Insomnia, unspecified; E34.0 Carcinoid syndrome; R63.4 Abnormal weight loss; C7A.00 Malignant carcinoid tumor of unspecified site; C7B.03 Secondary carcinoid tumors of bone; C7B.02 Secondary carcinoid tumors of liver; C7B.09 Secondary carcinoid tumors of other sites; Z79.899 Other long term (current) drug therapy; Z79.891 Long term (current) use of opiate analgesic; Z63.6 Dependent relative needing care at home; Z60.8 Other problems related to social environment; Z66 Do not resuscitate
CPT/HCPCS: 99350

== ENCOUNTER 2020-02-18 15:45 | Outpatient (CLI) | payer MEDICARE, OTHER | END 2020-02-18 23:59 | disposition home or self-care (01) | LOC: LAB.R 15:45 | PROVIDERS: ATTEND Family Medicine | DX: R30.0 Dysuria (principal) | CPT/HCPCS: 87086; 87181 ==

== ENCOUNTER 2021-11-05 08:00 | Outpatient (CLI) | payer MEDICARE, OTHER ==
[2021-11-05 22:42] LABS: BACTERIAL VAGINOSIS DNA NEGATIVE (NEGATIVE); CANDIDA GLABRATA DNA NEGATIVE (NEGATIVE); CANDIDA GROUP DNA NEGATIVE (NEGATIVE); CANDIDA KRUSEI DNA NEGATIVE (NEGATIVE); TRICHOMONAS VAGINALIS DNA NEGATIVE (NEGATIVE)
== END 2021-11-05 08:01 | disposition home or self-care (01) ==
LOC: LAB 08:00
PROVIDERS: ATTEND Nurse Practitioner
DX: N89.8 Other specified noninflammatory disorders of vagina (principal)
CPT/HCPCS: 81514